=== PATIENT | male | born 1990 | race African-American/Black ===

== ENCOUNTER 2025-04-13 05:37 | Day surgery (SDC) | payer OTHER ==
[2025-04-10 11:19] VITALS: BMI 24.0
[2025-04-13 09:14] VITALS: TEMP 98.4
[2025-04-13 09:53] VITALS: BP 120/74; PULSE 68; RESP 18
== END 2025-04-13 10:12 | disposition home or self-care (01) ==
LOC: JASU-ENDO 05:37
PROVIDERS: ATTEND Internal Medicine Gastroenterology
PROC: 0DBP8ZX Excision of Rectum, Via Natural or Artificial Opening Endoscopic, Diagnostic (ICD-10-PCS; principal; 2025-04-13 08:45)
DX: K52.89 Other specified noninfective gastroenteritis and colitis (principal); K62.89 Other specified diseases of anus and rectum
CPT/HCPCS: 88305-TC

== ENCOUNTER 2025-07-20 06:51 | Day surgery (SDC) | payer OTHER ==
[2025-07-16 11:26] VITALS: BMI 23.0
[2025-07-20 11:26] VITALS: TEMP 98
[2025-07-20 11:38] VITALS: BP 119/73; PULSE 69; RESP 15
== END 2025-07-20 11:38 | disposition home or self-care (01) ==
LOC: JASU-ENDO 06:51
PROVIDERS: ATTEND Internal Medicine Gastroenterology
PROC: 0DB78ZX Excision of Stomach, Pylorus, Via Natural or Artificial Opening Endoscopic, Diagnostic (ICD-10-PCS; 2025-07-20)
PROC: 0DB68ZX Excision of Stomach, Via Natural or Artificial Opening Endoscopic, Diagnostic (ICD-10-PCS; principal; 2025-07-20 10:00)
DX: K29.50 Unspecified chronic gastritis without bleeding (principal)
CPT/HCPCS: 88305-TC; 88342-TC